=== PATIENT | female | born 1995 | race Caucasian/White ===

== ENCOUNTER → 2018-10-31 | Outpatient (CLI) | payer OTHER | END | disposition home or self-care (01) | LOC: PRENATAL 10:00 | DX: O26.892 Other specified pregnancy related conditions, second trimester (principal); O99.89 Other specified diseases and conditions complicating pregnancy, childbirth and the puerperium ==

== ENCOUNTER 2019-01-23 17:58 | Inpatient (IN) | payer OTHER ==
[~2019-01-23] VITALS: Ht 152.4 cm; Wt 86.6 kg
[2019-01-23] MEDS ORDERED: PRENATAL 19 TA1 EAC1 PO (19:10)
== END 2019-01-27 13:09 | disposition home or self-care (01) | DRG 831 ==
LOC: LDR 17:58 → OB/GYN 01-25 16:57
PROVIDERS: ADMIT Obstetrics & Gynecology
PROC: 4A1HXCZ Monitoring of Products of Conception, Cardiac Rate, External Approach (ICD-10-PCS; principal; 2019-01-23)
PROC: BY4FZZZ Ultrasonography of Third Trimester, Single Fetus (ICD-10-PCS; 2019-01-24)
DX: O14.03 Mild to moderate pre-eclampsia, third trimester (principal); O60.03 Preterm labor without delivery, third trimester

== ENCOUNTER 2019-01-30 13:08 | Inpatient (IN) | payer OTHER ==
[~2019-01-30] VITALS: Ht 152.4 cm; Wt 85.3 kg
[~2019-01-30 13:08] MED LIST: PRENATAL 19 TA1 EAC1 PO
== END 2019-02-01 12:13 | disposition home or self-care (01) | DRG 833 ==
LOC: OBS/DEL 13:08 → LDR 15:51 → OBS/DEL 15:51 → OB/GYN 01-31 14:04
PROVIDERS: ADMIT Obstetrics & Gynecology
PROC: 4A1HXCZ Monitoring of Products of Conception, Cardiac Rate, External Approach (ICD-10-PCS; principal; 2019-01-30)
DX: O14.03 Mild to moderate pre-eclampsia, third trimester (principal)

== ENCOUNTER 2019-02-04 12:48 | Outpatient (CLI) | payer OTHER | END 2019-02-05 16:33 | disposition home or self-care (01) | LOC: OBS/DEL 12:48 | DX: O60.03 Preterm labor without delivery, third trimester (principal); O14.03 Mild to moderate pre-eclampsia, third trimester ==

== ENCOUNTER 2019-02-07 09:39 | Inpatient (IN) | payer OTHER ==
[~2019-02-07] VITALS: Ht 152.4 cm; Wt 2.3 kg
== END 2019-02-11 19:50 | disposition home or self-care (01) | DRG 786 ==
LOC: LDR 09:39 → OB/GYN 09:39 → LDR 19:05 → OB/GYN 02-08 15:18
PROVIDERS: ADMIT Obstetrics & Gynecology
PROC: 4A1HXCZ Monitoring of Products of Conception, Cardiac Rate, External Approach (ICD-10-PCS; 2019-02-07)
PROC: 10D00Z1 Extraction of Products of Conception, Low, Open Approach (ICD-10-PCS; principal; 2019-02-07 12:00)
DX: O82 Encounter for cesarean delivery without indication (principal); O45.8X3 Other premature separation of placenta, third trimester; D62 Acute posthemorrhagic anemia; O14.14 Severe pre-eclampsia complicating childbirth; Z3A.33 33 weeks gestation of pregnancy; Z37.0 Single live birth

== ENCOUNTER 2025-02-16 11:00 | Day surgery (SDC) | payer OTHER ==
[2025-02-09 11:00] LABS: BASO % 0.5 % (0.1-1.2); EOS # 0.37 (0.04-0.54); EOS % 6.4 % (0.7-7.0); LYMPH # 1.68 (1.18-3.74); LYMPH % 29.3 % (19.3-53.1); MEAN PLATELET VOLUME 9.40 fl (9.4-12.4); MONO # 0.45 (0.24-0.82); MONO % 7.8 % (4.7-12.5); NEUT # 3.20 (1.56-6.13); NEUT % 55.8 % (34.0-71.1); RED CELL DISTRIBUTION WIDTH 11.9 % (11.6-14.4)
[2025-02-09 11:35] LABS: INR 1.04
[2025-02-09 11:41] LABS: URINE APPEARANCE Cloudy; URINE BILIRRUBIN Negative (NEGATIVE); URINE BLOOD Large; URINE COLOR Orange; URINE EPITHELIAL CELLS 41.9 uL (0.0-38.8); URINE GLUCOSE Negative (NEGATIVE); URINE KETONE Negative (NEGATIVE); URINE LEUKOCYTE Small; URINE NITRATE Negative; URINE PROTEIN 30 (NEGATIVE); URINE RBC 770.2 uL (0.0-20.8); URINE UROBILINOGEN 1.0 E.U./dl; URINE WBC 108.6 uL (0.0-23.2)
[2025-02-09 11:51] LABS: URINE CAST 0.73 uL (0.0-1.40)
[2025-02-09 11:52] LABS: URINE CRYSTALS MODERATE /HPF
[2025-02-09 12:05] LABS: ALT/SGPT 17.0 U/L (12-78); AST/SGOT 16.0 U/L (15-37); BILIRUBIN TOTAL 0.42 mg/dL (0.3-1.2); BUN CREA RATIO 25.0 (7.0-25.0); CREATININE SERUM 0.53 mg/dL (0.55-1.02); GFR 134.55; GLOBULINA 3.5 G/DL (2.4-3.5); GLUCOSE FASTING 90.0 mg/dL (65-100); OSMOLALITY SERUM 283.0 MOSM/KG (275-295)
[2025-02-16] MEDS ORDERED: POVIDONE-IODINE 118 ML BOTT TOP ONE (13:15)
== END 2025-02-16 17:15 | disposition home or self-care (01) ==
LOC: CIR.AMB 11:00
PROVIDERS: ATTEND Obstetrics & Gynecology
DX: N83.8 Other noninflammatory disorders of ovary, fallopian tube and broad ligament (principal); R10.20 Pelvic and perineal pain unspecified side; N73.6 Female pelvic peritoneal adhesions (postinfective)